=== PATIENT | female | born 1970 | race Caucasian/White ===

== ENCOUNTER 2017-12-25 10:45 | Inpatient (IN) ==
[2017-12-25 12:40] LABS: BASOPHILS # (AUTO) 0.1 X10^3/uL (0.0-0.1); BASOPHILS % (AUTO) 0.8 % (0.2-1.0); EOSINOPHILS # (AUTO) 0.1 x10^3/uL (0.0-0.2); HEMATOCRIT 42.6 % (36.0-47.0); HEMOGLOBIN 14.3 g/dL (12.0-16.0); LYMPHOCYTES # (AUTO) 2.2 X10^3/uL (1.3-2.9); LYMPHOCYTES % (AUTO) 17.8 % (21.0-51.0); MEAN CORPUSCULAR HEMOGLOBIN 27.9 pg (27.0-34.0); MEAN CORPUSCULAR HGB CONC 33.7 g/dL (33.0-35.0); MEAN CORPUSCULAR VOLUME 82.8 fL (80.0-100.0); MONOCYTES # (AUTO) 1.1 x10^3/uL (0.3-0.8); MONOCYTES % (AUTO) 8.7 % (0.0-13.0); NEUTROPHILS % (AUTO) 71.7 % (42.0-75.0); PLATELET COUNT 327 X10^3/uL (150.0-450.0); RED BLOOD COUNT 5.14 X10^6/uL (3.5-5.4); RED CELL DISTRIBUTION WIDTH 13.5 % (11.6-16.5); WHITE BLOOD COUNT 12.5 X10^3/uL (3.6-10.0)
[2017-12-25] MEDS: NS 1000 ML 1,000 ML IV SCH ×2 (12:40→22:44)
[2017-12-25 12:50] LABS: ALANINE AMINOTRANSFERASE 26 Units/L (12-78); ALBUMIN 3.4 g/dL (3.4-5.0); ALKALINE PHOSPHATASE 75 Units/L (46-116); ASPARTATE AMINO TRANSFERASE 17 Units/L (15-37); BLOOD UREA NITROGEN 8 mg/dL (7-18); CALCIUM 9.2 mg/dL (8.5-10.1); CARBON DIOXIDE 32.5 mmol/L (21-32); CHLORIDE 100 mmol/L (98-107); CREATININE 1.05 mg/dL (0.55-1.02); SODIUM 138 mmol/L (136-145); TOTAL PROTEIN 8.3 g/dL (6.4-8.2); eGFR NON BLACK RACES 59 (>60)
[2017-12-25 12:58] LABS: BILIRUBIN,URINE NEGATIVE (NEGATIVE); BLOOD/HEMOGLOBIN,URINE 3+ (NEGATIVE); GLUCOSE, URINE NEGATIVE (NEGATIVE); KETONES,URINE NEGATIVE (NEGATIVE); LEUKOCYTE ESTERASE ,URINE 1+ (NEGATIVE); NITRITES,URINE NEGATIVE (NEGATIVE); PROTEIN,URINE 3+ (NEGATIVE); UROBILINOGEN,URINE 1+ (NORMAL)
[2017-12-25] MEDS ORDERED: CONSULT PHARMACY - ANTIBIOTIC XX SCH (13:00)
[2017-12-25 13:03] LABS: APPEARANCE,URINE CLOUDY (CLEAR); COLOR,URINE DARK YELLOW (YELLOW)
[2017-12-25 13:05] LABS: BACTERIA,URINE TRACE /HPF (NEGATIVE); RBC,URINE 0-2 /HPF (NONE SEEN); SQUAMOUS EPITHELIAL CELL,UR FEW /HPF (NEGATIVE)
[2017-12-25] MEDS: INVANZ INJ 1 GM VIAL 1 GM in NS 100 ML IV + SPIKE MINIBAG* 100 ML IV SCH (13:22)
[2017-12-25 14:23] VITALS: BMI 44.9
[2017-12-26 05:25] LABS: BASOPHILS % (AUTO) 0.4 % (0.2-1.0); EOSINOPHILS # (AUTO) 0.2 x10^3/uL (0.0-0.2); EOSINOPHILS % (AUTO) 1.8 % (0.9-2.9); HEMOGLOBIN 12.9 g/dL (12.0-16.0); LYMPHOCYTES # (AUTO) 2.2 X10^3/uL (1.3-2.9); LYMPHOCYTES % (AUTO) 20.3 % (21.0-51.0); MEAN CORPUSCULAR HEMOGLOBIN 27.8 pg (27.0-34.0); MEAN CORPUSCULAR VOLUME 81.8 fL (80.0-100.0); MEAN PLATELET VOLUME 8.1 fL (7.4-11.0); MONOCYTES % (AUTO) 9.7 % (0.0-13.0); NEUTROPHILS # (AUTO) 7.2 x10^3/uL (2.2-4.8); NEUTROPHILS % (AUTO) 67.8 % (42.0-75.0); PLATELET COUNT 293 X10^3/uL (150.0-450.0); RED BLOOD COUNT 4.65 X10^6/uL (3.5-5.4); RED CELL DISTRIBUTION WIDTH 13.3 % (11.6-16.5); WHITE BLOOD COUNT 10.6 X10^3/uL (3.6-10.0)
[2017-12-26 05:36] LABS: ALANINE AMINOTRANSFERASE 24 Units/L (12-78); ALBUMIN 2.8 g/dL (3.4-5.0); ALKALINE PHOSPHATASE 68 Units/L (46-116); ASPARTATE AMINO TRANSFERASE 17 Units/L (15-37); BLOOD UREA NITROGEN 8 mg/dL (7-18); CALCIUM 8.4 mg/dL (8.5-10.1); CARBON DIOXIDE 33.4 mmol/L (21-32); CHLORIDE 102 mmol/L (98-107); COR CA(FOR HYPOALB) 9.4 mg/dL (8.5-10.1); CREATININE 0.96 mg/dL (0.55-1.02); SODIUM 139 mmol/L (136-145); TOTAL PROTEIN 7.1 g/dL (6.4-8.2); eGFR NON BLACK RACES > 60 (>60)
[2017-12-26] MEDS: NS 1000 ML 1,000 ML IV SCH ×4 (06:47→21:06)
[2017-12-26] MEDS: INVANZ INJ 1 GM VIAL 1 GM in NS 100 ML IV + SPIKE MINIBAG* 100 ML IV SCH (08:30)
[2017-12-26] MEDS ORDERED: NS 100 ML IV 100 ML IV ONE (11:17)
[2017-12-26] MEDS: [UNRECOGNIZED DRUG - OTHER] PO SCH (11:27)
[2017-12-26] MEDS: TENORMIN PO SCH ×2 (11:27→21:06)
--- NOTE | 2017-12-26 13:42 | CT ---
HISTORY: Abdominal pain, pyelonephritis Study: CT abdomen and pelvis with contrast Comparison: None Technique: Multiple axial images of the abdomen and pelvis were obtained from the lung bases to the pubic symphy sis after the administration of IV contrast. Findings: The included lung bases are clear. There is no evidence of a pleural or pericardial effusion. The hea rt size is normal. The liver attenuation is homogeneous. There is no pathologic biliary dilatation ob served. No radiopaque gallstones or inflammatory changes of the gallbladder are demonstrated. The mercedes er is mildly enlarged. The spleen size is normal. There are no peripancreatic inflammatory changes. T he left adrenal gland is normal. There is an indeterminate right adrenal mass measuring 4.2 cm in max imum axial diameter with homogeneous attenuation and Hounsfield unit measurements of 28. The kidneys enhance in a timely fashion. There is mild stranding of the upper pole of the right kidney with a sub tle striated nephrogram demonstrated within the upper pole cortex best appreciated on images 39-43. T his striated nephrogram along with the inflammatory perinephric stranding are consistent with the [facility] history of pyelonephritis; there is no hydronephrosis observed. The aorta and IVC caliber are nor mal. There are no pathologically enlarged lymph nodes of the abdomen or pelvis. The bowel gas pattern is nonobstructive. There are no aggressively thickened or inflamed bowel segmen ts. Normal caliber appendix is identified. The bladder appears normal. Uterus is surgically absent. There is no free fluid identified within the pelvis. The craniocaudal dimensions of the right adrenal mass are proximally 4.8 cm. Also better appreciated on the coronal reconstruction is a subtle striated nephrograms at the upper pole and midpole of the l eft kidney coronal image 44, image 35 and 40. Review of bone windows demonstrates no aggressive lytic or blastic bony lesions or acute osseous abno rmalities. IMPRESSION: Findings are consistent with bilateral pyelonephritis, right side more severe than left. Incidental note is made of an indeterminate, uniformly hypoattenuating right adrenal mass, not fulfil ling criteria for a cyst or adenoma based on Hounsfield unit measurements. Further workup will be nec essary for characterization; recommend follow-up MRI abdomen with contrast. Other chronic findings as detailed above. Reported By:
[2017-12-26] MEDS: LOVENOX INJ 40 MG SYR SC SCH (15:12)
[2017-12-26] MEDS ORDERED: [UNRECOGNIZED DRUG - OTHER] PO SCH (16:30)
[2017-12-26] MEDS ORDERED: [UNRECOGNIZED DRUG - OTHER] PO SCH (21:00)
[2017-12-27] MEDS: NS 1000 ML 1,000 ML IV SCH (04:26)
[2017-12-27 05:25] LABS: BASOPHILS # (AUTO) 0.1 X10^3/uL (0.0-0.1); BASOPHILS % (AUTO) 0.6 % (0.2-1.0); EOSINOPHILS # (AUTO) 0.3 x10^3/uL (0.0-0.2); EOSINOPHILS % (AUTO) 2.8 % (0.9-2.9); HEMOGLOBIN 12.6 g/dL (12.0-16.0); LYMPHOCYTES # (AUTO) 2.6 X10^3/uL (1.3-2.9); LYMPHOCYTES % (AUTO) 28.5 % (21.0-51.0); MEAN CORPUSCULAR VOLUME 82.3 fL (80.0-100.0); MEAN PLATELET VOLUME 8.1 fL (7.4-11.0); MONOCYTES # (AUTO) 0.8 x10^3/uL (0.3-0.8); MONOCYTES % (AUTO) 8.7 % (0.0-13.0); NEUTROPHILS # (AUTO) 5.4 x10^3/uL (2.2-4.8); NEUTROPHILS % (AUTO) 59.4 % (42.0-75.0); PLATELET COUNT 306 X10^3/uL (150.0-450.0); RED BLOOD COUNT 4.49 X10^6/uL (3.5-5.4); RED CELL DISTRIBUTION WIDTH 13.4 % (11.6-16.5); WHITE BLOOD COUNT 9.1 X10^3/uL (3.6-10.0)
[2017-12-27 05:47] LABS: ALANINE AMINOTRANSFERASE 28 Units/L (12-78); ALBUMIN 2.6 g/dL (3.4-5.0); ALKALINE PHOSPHATASE 63 Units/L (46-116); ASPARTATE AMINO TRANSFERASE 18 Units/L (15-37); BLOOD UREA NITROGEN 10 mg/dL (7-18); CALCIUM 8.2 mg/dL (8.5-10.1); CHLORIDE 103 mmol/L (98-107); COR CA(FOR HYPOALB) 9.3 mg/dL (8.5-10.1); CREATININE 0.93 mg/dL (0.55-1.02); SODIUM 139 mmol/L (136-145); TOTAL PROTEIN 6.8 g/dL (6.4-8.2); eGFR NON BLACK RACES > 60 (>60)
[2017-12-27] MEDS: [UNRECOGNIZED DRUG - OTHER] PO SCH (08:25)
[2017-12-27] MEDS: LOVENOX INJ 40 MG SYR SC SCH (08:26)
[2017-12-27] MEDS: INVANZ INJ 1 GM VIAL 1 GM in NS 100 ML IV + SPIKE MINIBAG* 100 ML IV SCH ×2 (08:26)
[2017-12-27] MEDS: TENORMIN PO SCH (08:27)
[2017-12-27 08:55] VITALS: BP 149/81
--- NOTE | 2018-01-02 09:12 | DR.UPDATE ---
H&P Update History and Physical Update: WAS SEEN IN THE OFFICE TODAY. A H&P WAS COMPLETED PRIOR TO ADMISSION. PATIENT HAS BEEN SEEN AND EXAMINED WITH NO CHANGES NOTED TO H&P. Changes noted: NO Yes with the following:
--- NOTE | 2018-01-02 09:23 | PCM.PROG ---
Progress Note - Progress Note for Day of Date of Exam: 12/26/17 - Subjective Subjective: WAS ADMITTED FOR SUSPECTED PYELOPNEPHRITIS. TODAY, SHE IS ALERT AND ORIENTED, LYING IN BED ON MORNING ROUNDS. SHE CONTINUES WITH COMPLAINTS OF LOWER ABDOMINAL PAIN, LOWER BACK PAIN, AND PAINFUL URINATION. SHE HAS BEEN ON CIPRO AND MACROBID OVER THE PAST WEEK. SHE REPORTS FEVER AND CHILLS AT HOME, BUT HAS BEEN AFEBRILE SINCE ADMISSION. ON EXAMINATION, HEART IS REGULAR IN RATE AND RHYTHM. BILATERAL LUNGS ARE CLEAR TO AUSCULTATION. ABDOMEN ROUND, SOFT, AND NOTED WITH MODERATE TENDERNESS TO THE LOWER QUADRANTS. NORMAL BOWEL SOUNDS ARE NOTED IN ALL QUADRANTS. HER VITALS THIS MORNING ARE 97.9-84-20- 96%-134/66. LABS WERE OBTAINED. ABNORMAL LAB VALUES INCLUDE THE FOLLOWING: WBC 10.6, CARBON DIOXIDE 33.4, GLUCOSE 105, CALCIUM 8.4, ALBUMIN 2.8. TODAY, WE PLAN TO OBTAIN AN ABDOMEN/PELVIS CT WITH CONTRAST. OTHERWISE, WE WILL CONTINUE WITH IV ANTIBIOTICS AND CURRENT PLAN OF CARE. WE WILL FOLLOW UP WITH AM LABS AND CONTINUE TO MONITOR PATIENT. - Past Medical Family Social History Past Med/Fam/Surg Hx: No changes since H&P Allergies: Allergies No Known Drug Allergies Allergy (Verified 12/25/17 12:10) - Review of Systems ROS: No change since H&P - Vital Signs and I&O's Vital Signs: Temperature 97.9 F Pulse Rate [Right Brachial] 65 Respiratory Rate 18 Blood Pressure [Right Arm] 149/81 O2 Sat by Pulse Oximetry 96 - Physical Exam Oriented: Normal Eyes: Normal Ear: Normal Nose: Normal Throat: Normal Respiratory: Normal Cardiovascular: Normal. negative: S3, S4, Murmur : Normal Auscultation: Bowel Sounds: Normal Palpation: Normal Tenderness: Normal, RLQ, LLQ, Moderate. negative: Rebound, Guarding, Rigidity Skin: Normal Musculoskeletal: Normal Psychiatric: Normal Mood Description: Calm Affect: Normal Speech Pattern: Clear, Appropriate - Laboratory and Diagnostics Result Diagrams: 12/27/17 04:15 12/27/17 04:15 Labs: 12/25/17 13:16 Blood Blood Culture - Final 12/25/17 12:27 Blood Blood Culture - Final 12/25/17 12:46 Urine,Clean Catch Urine Culture - Final Laboratory WBC 9.1 X10^3/uL (3.6-10.0) 12/27/17 04:15 RBC 4.49 X10^6/uL (3.5-5.4) 12/27/17 04:15 Hgb 12.6 g/dL (12.0-16.0) 12/27/17 04:15 Hct 37.0 % (36.0-47.0) 12/27/17 04:15 MCV 82.3 fL (80.0-100.0) 12/27/17 04:15 MCH 28.0 pg (27.0-34.0) 12/27/17 04:15 MCHC 34.0 g/dL (33.0-35.0) 12/27/17 04:15 RDW 13.4 % (11.6-16.5) 12/27/17 04:15 Plt Count 306 X10^3/uL (150.0-450.0) 12/27/17 04:15 MPV 8.1 fL (7.4-11.0) 12/27/17 04:15 Neut % (Auto) 59.4 % (42.0-75.0) 12/27/17 04:15 Lymph % (Auto) 28.5 % (21.0-51.0) 12/27/17 04:15 Henry % (Auto) 8.7 % (0.0-13.0) 12/27/17 04:15 Eos % (Auto) 2.8 % (0.9-2.9) 12/27/17 04:15 Baso % (Auto) 0.6 % (0.2-1.0) 12/27/17 04:15 Neut # (Auto) 5.4 x10^3/uL (2.2-4.8) H 12/27/17 04:15 Lymph # (Auto) 2.6 X10^3/uL (1.3-2.9) 12/27/17 04:15 Henry # (Auto) 0.8 x10^3/uL (0.3-0.8) 12/27/17 04:15 Eos # (Auto) 0.3 x10^3/uL (0.0-0.2) H 12/27/17 04:15 Baso # (Auto) 0.1 X10^3/uL (0.0-0.1) 12/27/17 04:15 Absolute Nucleated RBC 0.1 /100WBC 12/27/17 04:15 Sodium 139 mmol/L (136-145) 12/27/17 04:15 Corrected Sodium TNP 12/27/17 04:15 Potassium 4.0 mmol/L (3.5-5.1) 12/27/17 04:15 Chloride 103 mmol/L (98-107) 12/27/17 04:15 Carbon Dioxide 32.0 mmol/L (21-32) 12/27/17 04:15 BUN 10 mg/dL (7-18) 12/27/17 04:15 Creatinine 0.93 mg/dL (0.55-1.02) 12/27/17 04:15 Est GFR (MDRD) Af Amer > 60 (>60) 12/27/17 04:15 Est GFR (MDRD) Non-Af > 60 (>60) 12/27/17 04:15 Glucose 103 mg/dL (65-99) H 12/27/17 04:15 Calcium 8.2 mg/dL (8.5-10.1) L 12/27/17 04:15 Corrected Calcium 9.3 mg/dL (8.5-10.1) 12/27/17 04:15 Total Bilirubin 0.20 mg/dL (0.2-1.0) 12/27/17 04:15 AST 18 Units/L (15-37) 12/27/17 04:15 ALT 28 Units/L (12-78) 12/27/17 04:15 Alkaline Phosphatase 63 Units/L (46-116) 12/27/17 04:15 Total Protein 6.8 g/dL (6.4-8.2) 12/27/17 04:15 Albumin 2.6 g/dL (3.4-5.0) L 12/27/17 04:15 Globulin 4.2 g/dL (2.5-4.5) 12/27/17 04:15 Albumin/Globulin Ratio 0.6 Ratio (1.1-2.1) L 12/27/17 04:15 Specimen Type Clean catch urine 12/25/17 12:46 Urine Color Dark yellow (YELLOW) 12/25/17 12:46 Urine Appearance Cloudy (CLEAR) 12/25/17 12:46 Urine pH 7.0 (5.0 - 8.0) 12/25/17 12:46 Ur Specific [place] 1.010 (1.000-1.030) 12/25/17 12:46 Urine Protein 3+ (NEGATIVE) 12/25/17 12:46 Urine Glucose (UA) Negative (NEGATIVE) 12/25/17 12:46 Urine Ketones Negative (NEGATIVE) 12/25/17 12:46 Urine Occult Blood 3+ (NEGATIVE) 12/25/17 12:46 Urine Nitrite Negative (NEGATIVE) 12/25/17 12:46 Urine Bilirubin Negative (NEGATIVE) 12/25/17 12:46 Urine Urobilinogen 1+ (NORMAL) 12/25/17 12:46 Ur Leukocyte Esterase 1+ (NEGATIVE) 12/25/17 12:46 Urine RBC 0-2 /HPF (NONE SEEN) 12/25/17 12:46 Urine WBC 3-5 /HPF (NONE SEEN) 12/25/17 12:46 Ur Squamous Epith Cells Few /HPF (NEGATIVE) 12/25/17 12:46 Urine Bacteria Trace /HPF (NEGATIVE) 12/25/17 12:46 Ur Culture Indicated? No/not indicated 12/25/17 12:46 - Plan (1) Pyelonephritis Status: Acute Plan: CONTINUE IV ANTIBIOTICS, CONTINUE IV FLUIDS, CONTINUE TO MONITOR, OBTAIN ABDOMEN/PELVIS CT WITH CONTRAST
--- NOTE | 2018-01-25 12:13 | DR.CARTERD ---
- Discharge Summary for: Discharge Summary for Date of:: 12/27/17 - Admission Date Date of Admission: 12/25/17 - Admission Diagnoses Admission Diagnosis: (1) Pyelonephritis (2) Abd pain (3) Fever and chills (4) painful urination - Discharge Date Discharge Date: 12/27/17 - Discharge Diagnoses Discharge Diagnosis: (1) Pyelonephritis (2) Abd pain (3) Fever and chills (4) painful urination - Hospital Course Hospital Course: Day one, Patient presented to the hospital as a direct admission after being seen in the office with reports of continued urinary tract infection. Patient was seen in the office two weeks prior and diagnosed with a UTI and started on oral antibiotic of Cipro. Symptoms continued, and patient was started on Bactrim and Macrobid on Saturday. Patient presented to office again this day with continued symptoms and failure to improve and was admitted to the hospital for pyelonephritis. Patient started on IV Invanz daily and IV fluids. Labs obtained on arrival and Abnormal Labs included: WBC 12.5, Lymph% 17.8, Neut# 9.0 , Park# 1.1, Carbon Dioxide 32.5, Creatinine 1.05, Total Protein 8.3, Globulin 4.9, A/G Ratio 0.7. Urinalysis revealed Cloudy, Protein 3+, Occult Blood 3+, Urobilinogen 1+, Leuk Est 1+, RBC 0-2, WBC 3-5, Bacteria Trace, Culture Pending. Blood cultures also collected. Day two, patient continued with complaints of lower abdominal pain, lower back pain, and painful urination. She reported chills and fever at home, but had been afebrile since admission. Vitals were: 97.9-84-20-96%-134/66. WBC had improved to 10.6. Abnormal Labs: WBC 10.6, Lymph% 20.3, Neut# 7.2, Park# 1.0, Carbon Dioxide 33.4, Glucose 105, Calcium 8.4, Albumin 2.8, A/G Ratio 0.7. We obtained an abdomen/pelvis CT and it reported: Findings are consistent with bilateral pyelonephritis, right side more severe than left. Incidental note is made of an indeterminate, uniformly hypoattenuating right adrenal mass, not fulfilling criteria for a cyst or adenoma based on Hounsfield unit measurements. Further workup will be necessary for characterization; recommend follow-up MRI abdomen with contrast. We continued treatment and continued to monitor. Day three, patient reported she was feeling better after receiving IV antibiotics and IV fluids. She reported decreased abdominal pain and decrease in painful urination. No acute distress noted. Final blood and urine cultures negative. Vital signs stable. WBC was 9.1. Labs and vital signs wnl. We planned for discharge with oral antibiotics. Instructions for medications and follow up were discussed with patient and family, both voiced understanding. Patient discharged home in stable condition with family. - Discharge Medications Discharge Medications: Home Medication List Home Medication 1 cap PO DAILYAC 12/25/17 [History] Home Medication 2 cap PO HS 12/25/17 [History] Home Medication 25 mg PO DAILY 12/25/17 [History] atenolol 1 tab PO BID 12/25/17 [History] sulfamethoxazole-trimethoprim [Bactrim DS] 1 tab PO BID #28 tab 12/27/17 [Rx] Prescriptions: sulfamethoxazole-trimethoprim [Bactrim DS] German Kaufman - Discharge Disposition Discharge Disposition: Patient is to follow up with [facility] in one week.
== END 2017-12-27 10:25 | disposition home or self-care (01) | DRG 690 ==
LOC: MED/SURG 11:42
PROVIDERS: ADMIT Internal Medicine; ATTEND Internal Medicine
DX: R10.84 Generalized abdominal pain; M54.5 Low back pain; N39.0 Urinary tract infection, site not specified; N10 Acute pyelonephritis; I10 Essential (primary) hypertension; R30.9 Painful micturition, unspecified
CPT/HCPCS: 36415; 74177; 80053; 81001; 85025; 87040; 87086; A4222; J1335; J1650; J7030; J7050